=== PATIENT | male | born 1995 | race African-American/Black ===

== ENCOUNTER 2023-03-10 15:00 | Emergency (ER) | payer MEDICAID, SELFPAY ==
[2023-03-10 15:03] VITALS: BP 168/98; PULSE 103; RESP 18; TEMP 37.3; O2SAT 95; BMI 45.1
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
[2023-03-10 15:58] LABS: Absolute Lymphocyte Count 3.02 X10^3/uL (0.83-4.51); Absolute Neutrophil Count 3.9 X10^3/uL (2.0-7.7); Basophil# 0.04 X10^3/uL; Basophil% 0.5 % (0-1); Eosinophil# 0.12 X10^3/uL; Eosinophils% 1.6 % (0-5); Hematocrit 48.9 % (40-54); Hemoglobin 15.1 g/dL (13.0-16.5); Lymphocyte # 3.02 X10^3/ul (0.83-4.51); Lymphocyte % 39.5 % (19-41); Mean Corp Hgb Conc 30.9 g/dL (32-36); Mean Corpuscular Hgb 26.8 pg (27.0-32.0); Mean Corpuscular Volume 86.9 fL (80-94); Mean Platelet Vol. 10.8 fl (6.2-12.0); Monocyte# 0.55 X10^3/uL; Monocyte% 7.2 % (0-10); NRBC Flagged by Analyzer 0 % (0-5); Neutrophil # 3.91 X10^3/uL (2.7-7.7); Neutrophil % 51.1 % (47-70); Platelet Count 262 K/mm3 (150-450); RBC Distribution Width CV 14.6 % (11.6-14.6); Red Blood Count 5.63 M/mm3 (4.6-6.2); White Blood Count 7.7 K/mm3 (4.4-11.0)
[2023-03-10 16:13] LABS: Anion Gap 7 (5-15); BUN 12 mg/dL (7-18); Calcium,Total 9.5 mg/dL (8.5-10.1); Chloride 107 mmol/L (98-107); EST Glomerular Filtration Rate 95 mL/min (>60); Est Glom Filt Rate - Afr Amer 114 mL/min (>60); Estimated Creatinine Clearance 109.98 ml/min; Glucose 109 mg/dL (74-106); Sodium Level 142 mmol/L (136-145)
[2023-03-10 16:21] LABS: Alcohol, Blood (Medical)-Serum < 3.0 mg/dL
[2023-03-10 16:31] LABS: Amphetamine Urine VISTA NEGATIVE (<1000 ng/mL); Barbiturate Urine VISTA NEGATIVE (< 200 ng/mL); Benzodiazepine Urine VISTA NEGATIVE (< 200 ng/mL); Cocaine Urine VISTA NEGATIVE (< 300 ng/mL); Ecstacy Urine VISTA POSITIVE (< 500 ng/mL); Methadone Urine VISTA NEGATIVE (< 300 ng/mL); PCP Urine VISTA NEGATIVE (< 25 ng/mL); THC Urine VISTA NEGATIVE (< 50 ng/mL); Vista UDS pH Range 5
--- NOTE | 2023-03-10 16:54 | NURSING ---
CALLED [facility]. TALKED TO DONAN
--- NOTE | 2023-03-10 16:59 | NURSING ---
FAXED CHART TO [facility]
[2023-03-10 18:32] VITALS: PULSE 102; RESP 18; O2SAT 95
[2023-03-10 20:00] VITALS: RESP 16; O2SAT 97
[2023-03-10 21:00] VITALS: RESP 16; O2SAT 97
--- NOTE | 2023-03-10 22:59 | ED.RN ---
HAS BEEN REFERRED TO [facility]
[2023-03-10 23:00] VITALS: BP 148/89; PULSE 98; RESP 16; O2SAT 97
--- NOTE | 2023-03-11 00:02 | ED.RN ---
REFERRED TO [facility].
[2023-03-11 01:00] VITALS: BP 139/84; PULSE 74; RESP 16; TEMP 36.7; O2SAT 98
--- NOTE | 2023-03-11 01:37 | ED.RN ---
PT ACCEPTED AT [facility] [address]AVER[facility] [id number] [phone]
[2023-03-11 04:00] VITALS: RESP 18
[2023-03-11 06:14] VITALS: BP 139/79; PULSE 81; RESP 18; TEMP 36.8; O2SAT 95
[2023-03-11 06:17] VITALS: BP 139/79; PULSE 81; RESP 18; O2SAT 95
[2023-03-11 07:47] VITALS: BP 134/74; PULSE 80; RESP 16; O2SAT 96
== END 2023-03-11 07:51 ==
PROVIDERS: Emergency Provider Emergency Medicine; Visit Provider Emergency Medicine
DX: F31.9 Bipolar disorder, unspecified (principal); E11.9 Type 2 diabetes mellitus without complications; R45.851 Suicidal ideations; I10 Essential (primary) hypertension
CPT/HCPCS: 80048; 80307; 82077; 85025; 87811; 99285